=== PATIENT | female | born 1995 | race Two or more races ===

== ENCOUNTER 2021-03-11 20:42 | Emergency (ER) | payer OTHER ==
[~2021-03-11] VITALS: Ht 175.3 cm; Wt 65.8 kg
[2021-03-11] MEDS ORDERED: [UNRECOGNIZED DRUG - OTHER] (21:04)
== END 2021-03-11 23:14 | disposition home or self-care (01) ==
LOC: ER 20:42
DX: S93.691A Other sprain of right foot, initial encounter (principal); X50.9XXA Other and unspecified overexertion or strenuous movements or postures, initial encounter; Y93.89 Activity, other specified; Y92.89 Other specified places as the place of occurrence of the external cause; Y99.8 Other external cause status